=== PATIENT | male | born 1955 | race Caucasian/White ===

== ENCOUNTER 2020-05-12 09:25 | Emergency (ER) | payer MEDICAID, OTHER ==
[~2020-05-12] VITALS: Ht 177.8 cm; Wt 90.7 kg
[2020-05-12 10:11] LABS: Basophils # (auto) 0 10 ^3/uL (0-0.2); Basophils % (auto) 0.5 % (0.0-2.0); Eosinophils # (auto) 0.3 10 ^3/uL (0-0.8); Eosinophils % (auto) 3.6 % (0.0-7.0); Hematocrit 37.1 % (41.0-53.0); Hemoglobin 12.7 g/dL (13.5-17.5); Lymphocytes % (auto) 23.1 % (10.0-50.0); Mean Corpuscular Hemoglobin 32.1 pg (28.0-32.0); Mean Corpuscular Hgb Conc. 34.4 g/dL (32.0-36.0); Mean Corpuscular Volume 93.4 fL (80.0-100.0); Monocytes # (auto) 0.4 10 ^3/uL (0-1.3); Monocytes % (auto) 4.5 % (0.0-12.0); Neutrophils # (auto) 5.8 10 ^3/uL (1.6-8.6); Neutrophils % (auto) 68.3 % (37.0-80.0); Platelet Count (auto) 231 10^3/uL (140-450); Red Blood Cells 3.97 10^6/uL (4.5-5.90); Red Cell Distribution Width 13.2 % (11.8-14.3); White Blood Cell 8.5 10^3/uL (4.4-10.8)
[2020-05-12 10:27] LABS: Calcium 8.7 mg/dL (8.5-10.1); Potassium 4.4 mmol/L (3.5-5.1)
[2020-05-12 10:32] LABS: Bilirubin, Total 0.5 mg/dL (0.2-1.0); Total Protein 7.5 g/dL (6.4-8.2)
[2020-05-12 10:45] VITALS: BP 124/82
[2020-05-12 10:47] LABS: INR 0.97 (0.9-1.15); Partial Thromboplastin Time 27.8 sec (23.0-31.2)
== END 2020-05-12 11:22 | disposition home or self-care (01) ==
LOC: ER 09:25
DX: R04.0 Epistaxis (principal)
CPT/HCPCS: 30901; 36415; 80053; 85025; 85610; 85730; 93005

== ENCOUNTER 2020-05-13 10:06 | Emergency (ER) | payer MEDICAID ==
[~2020-05-13] VITALS: Ht 177.8 cm; Wt 90.7 kg
[2020-05-13 11:35] VITALS: BP 160/101
== END 2020-05-13 11:41 | disposition home or self-care (01) ==
LOC: ER 10:06
DX: R04.0 Epistaxis (principal); Z48.02 Encounter for removal of sutures

== ENCOUNTER 2020-05-19 14:49 | Emergency (ER) | payer MEDICAID ==
[~2020-05-19] VITALS: Ht 177.8 cm; Wt 90.7 kg
[2020-05-19 15:46] LABS: Basophils # (auto) 0 10 ^3/uL (0-0.2); Basophils % (auto) 0.4 % (0.0-2.0); Eosinophils # (auto) 0.1 10 ^3/uL (0-0.8); Hematocrit 32.8 % (41.0-53.0); Hemoglobin 11.2 g/dL (13.5-17.5); Lymphocytes # (auto) 1.3 10 ^3/uL (0.4-5.4); Lymphocytes % (auto) 11.1 % (10.0-50.0); Mean Corpuscular Hemoglobin 31.6 pg (28.0-32.0); Mean Corpuscular Hgb Conc. 34.1 g/dL (32.0-36.0); Mean Corpuscular Volume 92.7 fL (80.0-100.0); Monocytes # (auto) 0.8 10 ^3/uL (0-1.3); Monocytes % (auto) 6.6 % (0.0-12.0); Neutrophils # (auto) 9.3 10 ^3/uL (1.6-8.6); Neutrophils % (auto) 80.9 % (37.0-80.0); Nucleated Red Blood Cells % 0.1 %; Platelet Count (auto) 332 10^3/uL (140-450); Red Blood Cells 3.54 10^6/uL (4.5-5.90); Red Cell Distribution Width 12.9 % (11.8-14.3); White Blood Cell 11.5 10^3/uL (4.4-10.8)
[2020-05-19 16:00] LABS: INR 1.02 (0.9-1.15); Partial Thromboplastin Time 30.1 sec (23.0-31.2)
[2020-05-19 16:24] LABS: Albumin 3.6 g/dL (3.4-5.0); Calcium 9.1 mg/dL (8.5-10.1); Chloride 101 mmol/L (98-107); Potassium 3.8 mmol/L (3.5-5.1); Sodium 133 mmol/L (136-145)
[2020-05-19 16:27] LABS: Alanine Aminotransferase 32 U/L (16-61); Anion Gap 11 (5-15); Aspartate Aminotransferase 24 U/L (15-37); BUN/Creatinine Ratio 19.4; Blood Urea Nitrogen 12 mg/dL (7-18); Carbon Dioxide 21 mmol/L (21-32); GFR African American 168 mL/min; GFR Non-African American 139 mL/min; Glucose 122 mg/dL (74-106)
[2020-05-19 16:33] LABS: Alkaline Phosphatase 70 U/L (45-117); Bilirubin, Total 0.6 mg/dL (0.2-1.0); Total Protein 7.4 g/dL (6.4-8.2)
[2020-05-19] MEDS ORDERED: HYDROcodone-ACET 5/325MG TAB PO ONE (17:15)
[2020-05-19] MEDS ORDERED: cefTRIAXone W LIDOCAINE 1 GM IM IM ONE (17:15)
[2020-05-19 17:40] VITALS: BP 133/75
== END 2020-05-19 18:07 | disposition home or self-care (01) ==
LOC: ER 14:49
DX: R04.0 Epistaxis (principal); I10 Essential (primary) hypertension; D72.829 Elevated white blood cell count, unspecified; J32.9 Chronic sinusitis, unspecified
CPT/HCPCS: 36415; 71045; 80053; 84484; 85025; 85610; 85730; 96372; 99284; J0696

== ENCOUNTER 2020-05-20 10:31 | Emergency (ER) | payer MEDICAID ==
[~2020-05-20] VITALS: Ht 177.8 cm; Wt 90.7 kg
[2020-05-20 10:34] VITALS: BP 145/93
[2020-05-20] MEDS ORDERED: OXYMETAZOLINE HCL 0.05 % NASAL SPRAY 15ML EACHNOSTRI ONE (11:45)
== END 2020-05-20 12:25 | disposition home or self-care (01) ==
LOC: ER 10:31
DX: R04.0 Epistaxis (principal); M10.9 Gout, unspecified; J33.9 Nasal polyp, unspecified; I10 Essential (primary) hypertension
CPT/HCPCS: 30901

== ENCOUNTER 2020-06-24 08:30 | Emergency (ER) | payer MEDICAID ==
[~2020-06-24] VITALS: Ht 177.8 cm; Wt 90.7 kg
[2020-06-24 09:37] VITALS: BP 131/86
[2020-06-24] MEDS ORDERED: KETOROLAC TROMETH 60MG/2ML VIAL IM ONE (09:45)
== END 2020-06-24 10:30 | disposition home or self-care (01) ==
LOC: ER 08:30
DX: M10.072 Idiopathic gout, left ankle and foot (principal); I25.10 Atherosclerotic heart disease of native coronary artery without angina pectoris; I10 Essential (primary) hypertension
CPT/HCPCS: 96372; 99283; J1885

== ENCOUNTER 2022-01-29 06:44 | Day surgery (SDC) | payer MEDICARE, MEDICAID ==
[~2022-01-29] VITALS: Ht 177.8 cm; Wt 81.2 kg
[2022-01-29] VITALS (9 sets, daily range): BP systolic 123–152; BP diastolic 71–101
[~2022-01-29 06:44] MED LIST: ASPI-543 PO; EMPA1TAB PO; FURO40TA4 PO; OXY5T GT; ROSU20TA14 PO; SACU1TAB PO; TAMS0.4C36 PO
[2022-01-29] MEDS ORDERED: IODIXANOL 320MG/ML 100ML BTL IV ONE ×2 (07:48→08:41)
[2022-01-29] MEDS ORDERED: LIDOCAINE 2%HCL (LOCAL ANESTH.) INJ 10ml MDV ONE ×3 (07:48→08:35)
[2022-01-29] MEDS ORDERED: VANCOMYCIN 1GM/250ML 250 ML IV ONE ×2 (08:00→08:15)
[2022-01-29] MEDS ORDERED: fentaNYL CITRATE 100 MCG/2 ML VL ONE ×2 (08:17→09:10)
[2022-01-29] MEDS ORDERED: MIDAZOLAM HCL 2MG/2ML 2ml VIAL (1mg/ml) ONE ×2 (08:17→09:10)
[2022-01-29] MEDS ORDERED: ceFAZolin 1GM VL ONE (08:33)
[2022-01-29] MEDS ORDERED: VANCOMYCIN HCL 1000 MG VL ONE (08:33)
[2022-01-29] MEDS ORDERED: HYDROcodone-ACET 5/325MG TAB PO ONE (12:30)
[2022-01-29] MEDS ORDERED: HYDROcodone-ACET 5/325MG TAB ONE (12:39)
== END 2022-01-29 14:57 | disposition home or self-care (01) ==
LOC: CATH 06:44
PROVIDERS: ATTEND Specialist
DX: I25.5 Ischemic cardiomyopathy (principal); I50.22 Chronic systolic (congestive) heart failure; I11.0 Hypertensive heart disease with heart failure; I50.9 Heart failure, unspecified; Z86.718 Personal history of other venous thrombosis and embolism
CPT/HCPCS: 33249; 71045; 93005; C1882; C1892; C1895; J1644; J2001; J2250; J3010; J3370; Q9967; U0003; 99152; 99153; J0690

== ENCOUNTER 2022-10-05 10:06 | Emergency (ER) | payer MEDICARE, MEDICAID ==
[~2022-10-05] VITALS: Ht 175.3 cm; Wt 87.1 kg
[2022-10-05] MEDS ORDERED: ACET-1080 PO (10:47)
[2022-10-05] MEDS ORDERED: CLIN300C70 PO (10:47)
[2022-10-05 10:49] VITALS: BP 135/88; PULSE 70; RESP 18; TEMP 97.3; O2SAT 96
== END 2022-10-05 11:20 | disposition home or self-care (01) ==
LOC: ER 10:06
DX: K04.7 Periapical abscess without sinus (principal); I10 Essential (primary) hypertension

== ENCOUNTER 2024-10-24 15:01 | Emergency (ER) | payer MEDICAID, MEDICARE ==
[~2024-10-24] VITALS: Ht 175.3 cm; Wt 92.3 kg
[~2024-10-24 15:01] MED LIST changes: +ACET-1080 PO; +CLIN1CAP70 PO; -TAMS0.4C36 PO; +TAMS0.4C39 PO
[2024-10-24 15:02] VITALS: BP 142/82; PULSE 74; RESP 16; TEMP 97.7; O2SAT 96
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
[2024-10-24] MEDS ORDERED: ALPRAZolam 0.5 MG TAB PO ONE (15:30)
== END 2024-10-24 19:12 | disposition left against medical advice (07) ==
LOC: ER 15:06
DX: F19.239 Other psychoactive substance dependence with withdrawal, unspecified (principal); M79.601 Pain in right arm; M79.18 Myalgia, other site; I10 Essential (primary) hypertension; M10.9 Gout, unspecified; I25.10 Atherosclerotic heart disease of native coronary artery without angina pectoris; Z79.84 Long term (current) use of oral hypoglycemic drugs; Z79.899 Other long term (current) drug therapy